=== PATIENT | female | born 1950 | race Hispanic/Latino ===

== ENCOUNTER → 2019-04-15 | Outpatient (CLI) | payer OTHER ==
[~2019-04-15] MED LIST: ASPI-1181 PO; ATOR40TA71 PO; CALC-190 PO; FENO160T16 PO; HYDR25TA PO; LEVO125T11 PO; NITR0.4T SL; PROP40TA7 PO
== END | disposition home or self-care (01) ==
LOC: RAH 08:44
PROVIDERS: ATTEND Family Medicine
DX: K76.89 Other specified diseases of liver (principal); N28.1 Cyst of kidney, acquired; I70.0 Atherosclerosis of aorta
CPT/HCPCS: 76700

== ENCOUNTER → 2019-08-06 | Outpatient (CLI) | payer OTHER ==
[~2019-08-06] MED LIST changes: -ASPI-1181 PO; +ASPI-1443 PO
== END | disposition home or self-care (01) ==
LOC: RAH 12:37
PROVIDERS: ATTEND Internal Medicine Cardiovascular Disease
DX: Z13.6 Encounter for screening for cardiovascular disorders (principal)
CPT/HCPCS: 75571

== ENCOUNTER → 2022-11-22 | Outpatient (CLI) | payer OTHER ==
[2022-11-22 12:43] LABS: ALBUMIN 3.6 g/dL (3.5-5.0); BILIRUBIN,TOTAL 0.4 mg/dL (0.2-1.0); CREATININE 0.7 mg/dL (0.5-1.5); POTASSIUM 3.9 mmol/L (3.5-5.1); TOTAL PROTEIN, SERUM 7.5 g/dL (6.0-8.3)
== END | disposition home or self-care (01) ==
LOC: LAB 08:57
PROVIDERS: ATTEND Family Medicine
DX: I25.10 Atherosclerotic heart disease of native coronary artery without angina pectoris (principal)
CPT/HCPCS: 36415; 80053; 80061